=== PATIENT | female | born 1995 ===

== ENCOUNTER 2019-01-09 21:19 | Emergency (ER) | payer OTHER ==
[~2019-01-09] VITALS: Ht 157.5 cm; Wt 54.4 kg
[2019-01-09] MEDS ORDERED: ATIVAN1 M1 (21:28)
[2019-01-10] MEDS ORDERED: ZOFRAN4 MG PO (03:31)
[2019-01-10] MEDS ORDERED: PEPCID40 MG PO (03:31)
== END 2019-01-10 03:37 | disposition home or self-care (01) ==
LOC: ER 21:19
DX: K92.0 Hematemesis (principal)

== ENCOUNTER 2019-07-10 18:26 | Emergency (ER) | payer OTHER ==
[~2019-07-10] VITALS: Ht 152.4 cm; Wt 59.0 kg
[~2019-07-10 18:26] MED LIST: ATIVAN1 M1; PEPCID40 MG PO; ZOFRAN4 MG PO
[2019-07-10] MEDS ORDERED: EFFEXOR XR150 MG (18:52)
[2019-07-10] MEDS ORDERED: SYMBICORT 16010.2 GM (18:52)
[2019-07-10] MEDS ORDERED: PROAIR HFA8.5 GM (18:52)
== END 2019-07-10 21:54 | disposition home or self-care (01) ==
LOC: ER 18:26
DX: R06.02 Shortness of breath (principal)

== ENCOUNTER 2020-08-15 22:24 | Emergency (ER) | payer OTHER ==
[~2020-08-15] VITALS: Ht 157.5 cm; Wt 64.9 kg
[~2020-08-15 22:24] MED LIST changes: +EFFEXOR XR150 MG; +PROAIR HFA8.5 GM; +SYMBICORT 16010.2 GM
[2020-08-15] MEDS ORDERED: CLONAZEPAM0.125 MG (22:32)
[2020-08-15] MEDS ORDERED: SINGULAIR10 MG (22:33)
== END 2020-08-16 02:21 | disposition home or self-care (01) ==
LOC: ER 22:24
DX: R05 Cough (principal); B96.0 Mycoplasma pneumoniae [M. pneumoniae] as the cause of diseases classified elsewhere; Z03.818 Encounter for observation for suspected exposure to other biological agents ruled out